=== PATIENT | male | born 1980 | race African-American/Black ===

== ENCOUNTER 2023-01-01 04:19 | Emergency (ER) | payer MEDICAID, SELFPAY ==
[2023-01-01 04:25] VITALS: BP 165/75; PULSE 68; RESP 17; TEMP 37.1; O2SAT 98; BMI 34.3
[2023-01-01 04:36] VITALS: PULSE 77
--- NOTE | 2023-01-01 05:07 | ED_ITS ---
HPI - Psych General Chief Complaint: ETOH/Substance Use Stated Complaint: seeking detox and knee pain Time Seen by Provider: 01/01/23 04:51 Source: patient Mode of arrival: ambulatory Limitations: no limitations History of Present Illness HPI Narrative: Patient with history of substance abuse use cocaine and heroin just released from the group home where he been using that there also IVDA use. No fever no chills patient also noticed skin rash on the neck and the right knee with slight redness and pain for last 3 days. No fever no chills no shortness of breath Related Data Previous Rx's Medication Instructions Recorded cephalexin 500 mg capsule 500 mg PO QID 10 days #40 caps 01/01/23 doxycycline hyclate 100 mg tablet 100 mg PO BID #20 tabs 01/01/23 Allergies Allergy/AdvReac Type Severity Reaction Status Date / Time No Known Allergies Allergy Unverified 05/24/20 19:16 [No Known Allergies*] Review of Systems Review of Systems: Yes all other systems are reviewed and are negative [facility] Social History Social History Alcohol intake: current Alcohol intake frequency: 3 or more drinks per day Alcohol type: hard liquor Smoked in Last 30 Days: Yes Use of substances other than those prescribed or required for medical reasons: Yes Substance Use Type: Crack/Cocaine, Heroin and Marijuana Last Used Substance: Hours (ago) Any prior treatment program specific to substance use: Yes Advance Directives: No Advance Directives Information Provided: Yes Physical Exam Vital Signs: Vital Signs: Last Vital Signs Temp 9706 F H 01/01/23 06:20 Pulse 90 01/01/23 06:20 Resp 21 H 01/01/23 06:20 BP 155/72 H 01/01/23 06:20 Pulse Ox 96 01/01/23 06:20 O2 Del Method Room Air 01/01/23 04:25 BMI result Body Mass Index 34.3 Appearance: Alert. Oriented X3. No acute distress. Eyes: PERRLA, ENT: Pharynx normal. Oral Mucosa moist Neck: Normal inspection. Neck supple. CVS: Normal heart rate and rhythm. Pulses normal. Respiratory: No respiratory distress. Equal air entry bilateral, no wheezing/rales/rhonchi Abdomen: Soft and nontender. Bowel sounds are present, no mass palpable, no CVA tenderness Skin: Skin warm and dry. Normal skin color. Normal skin turgor. IVDA track reynoso++ Extremities: No lower extremity edema. No calf tenderness right knee with cellulitis and lesions suggestive of MRSA good range of right knee movement no effusion Neuro: Oriented X 3. No motor deficit. No sensory deficit.No cerebellar signs , cranial nerves II-XII intact Medications Administered Discontinued Medications Generic Name Dose Route Start Last Admin Trade Name Freq PRN Reason Stop Dose Admin Cephalexin HCl 500 mg 01/01/23 05:12 01/01/23 05:23 Cephalexin 500 Mg Capsule PO 01/01/23 05:13 500 mg ONCE ONE Administration Doxycycline Monohydrate 100 mg 01/01/23 05:04 01/01/23 05:23 Doxycycline Monohydrate 100 Mg Capsule PO 01/01/23 05:05 100 mg ONCE ONE Administration Medical Decision Making Medical Decision Making [facility] Narrative: Patient with polysubstance abuse looking for detox placement will get care team involved also patient has clinically MRSA infection of the right knee will prescribe him doxycycline and Keflex Lab Data [facility] Lab Attestation statement: I reviewed the patient's lab results. 01/01/23 05:12 01/01/23 05:12 Labs: Lab Results 01/01/23 01/01/23 01/01/23 Range/Units 05:12 05:12 05:12 WBC 16.0 H (4.8-10.8) X10*3/uL RBC 4.77 (4.60-5.80) X10*6/uL Hgb 12.8 L (14.0-18.0) g/dl Hct 38.9 L (42.0-52.0) % MCV 81.6 (80.0-98.0) fL MCH 26.8 L (27.0-33.0) pg MCHC 32.9 (31.0-36.0) g/dl RDW 14.6 (11.0-16.0) % Plt Count 227 (160-400) X10*3/uL MPV 11.7 (9.4-12.4) fL Immature Gran % (Auto) 0.5 H (0.0-0.4) % Neut % (Auto) 83.8 H (45-73) % Lymph % (Auto) 6.3 L (20-40) % [place] % (Auto) 9.3 (2-11) % Eos % (Auto) 0.0 (0-4) % Baso % (Auto) 0.1 (0-2) % Lymph # (Auto) 1.0 L (1.2-4.9) X10*3/uL [place] # (Auto) 1.5 H (0.1-1.2) X10*3/uL Eos # (Auto) 0.0 (0.0-0.4) X10*3/uL Baso # (Auto) 0.0 (0.0-0.2) X10*3/uL Abs Immat Gran (auto) 0.08 H (0.00-0.03) X10*3/uL Absolute Neuts (auto) 13.4 H (2.0-8.3) x10*3/uL Absolute Nucleated RBC 0.000 (0.0-0.012) X10*3/uL Nucleated RBC % (auto) 0.0 (0.0-0.2) /100WBC Sodium 133 L (135-145) mmol/L Potassium 4.1 (3.3-5.1) mmol/L Chloride 92 L (96-108) mmol/L Carbon Dioxide 24 (22-29) mmol/L Anion Gap 21 H (12-20) BUN 23 H (9-16) mg/dL Creatinine 0.91 (0.5-1.4) mg/dL Estim Creat Clear Calc 107.4 Estimated GFR > 60 Fasting Glucose 104 H (60-99) mg/dL Calcium 9.3 (8.4-10.2) mg/dL Total Bilirubin 1.7 H (0.0-1.0) mg/dL AST 156 H (5-37) U/L ALT 90 H (0-40) U/L Alkaline Phosphatase 84 (39-117) U/L Total Protein 7.2 (6.5-8.0) g/dL Albumin 4.5 (3.5-5.0) g/dL Ethyl Alcohol < 10 mg/dL Discharge Plan Discharge Clinical Impression: Polysubstance abuse Patient Disposition: Still a Patient Prescriptions: New cephalexin 500 mg capsule 500 mg PO QID 10 Days Qty: 40 0RF doxycycline hyclate 100 mg tablet 100 mg PO BID Qty: 20 0RF
[2023-01-01 05:16] LABS: MANUAL DIFF FLAG NO
[2023-01-01 05:17] LABS: Basophils Percent Auto 0.1 % (0-2); Hematocrit 38.9 % (42.0-52.0); Hemoglobin 12.8 g/dl (14.0-18.0); Imm Gran Abs Auto 0.08 X10*3/uL (0.00-0.03); Imm Gran Pct Auto 0.5 % (0.0-0.4); Lymphocytes Percent Auto 6.3 % (20-40); Mean Corpuscular HGB Conc 32.9 g/dl (31.0-36.0); Mean Corpuscular Hemoglobin 26.8 pg (27.0-33.0); Mean Corpuscular Volume 81.6 fL (80.0-98.0); Mean Platelet Volume 11.7 fL (9.4-12.4); Monocytes Absolute Auto 1.5 X10*3/uL (0.1-1.2); Monocytes Percent Auto 9.3 % (2-11); Neutrophils Absolute Auto 13.4 x10*3/uL (2.0-8.3); Neutrophils Percent Auto 83.8 % (45-73); Platelet Count 227 X10*3/uL (160-400); Red Blood Count 4.77 X10*6/uL (4.60-5.80); Red Cell Distribution Width 14.6 % (11.0-16.0)
[2023-01-01] MEDS: Doxycycline Monohydrate 100 MG CAPSULE PO (05:23)
[2023-01-01] MEDS: cephALEXin 500 MG CAPSULE PO ×2 (05:23→13:22)
--- NOTE | 2023-01-01 05:25 | PC.NURSE ---
medicated per nov. notified JESSA porter
[2023-01-01 05:30] LABS: Ethanol < 10 mg/dL
[2023-01-01 05:33] LABS: Alanine Aminotransferase 90 U/L (0-40); Albumin Level 4.5 g/dL (3.5-5.0); Alkaline Phosphatase 84 U/L (39-117); Anion Gap 21 (12-20); Aspartate Amino Transferase 156 U/L (5-37); Bilirubin Total 1.7 mg/dL (0.0-1.0); Blood Urea Nitrogen 23 mg/dL (9-16); Calcium 9.3 mg/dL (8.4-10.2); Carbon Dioxide 24 mmol/L (22-29); Chloride 92 mmol/L (96-108); Creatinine Clr Calc Pharmacy 107.4; Estimated Glomerular Filt Rate > 60; Glucose Fasting 104 mg/dL (60-99); Potassium 4.1 mmol/L (3.3-5.1); Sodium 133 mmol/L (135-145); Total Protein 7.2 g/dL (6.5-8.0)
[2023-01-01 06:20] VITALS: BP 155/72; PULSE 90; RESP 21; TEMP 5374.4; TEMP 9706; O2SAT 96
--- NOTE | 2023-01-01 07:45 | PC.NURSE ---
pt is currently asleep, respirations even and unlabored. plan for the pt to seek detox
--- NOTE | 2023-01-01 09:46 | PC.NURSE ---
recover student success coach at bedside talking to pt, plan to start the detox bedsearch
--- NOTE | 2023-01-01 09:56 | MHC.RECOVRN ---
This newswriter met w/ patient, patient was sleeping, awake to verbal command. Patient reports was stable on Suboxone 16mg daily, while in prison for 3 months. Patient states left prison 12/11/22, has been using daily for past 3 weeks. Patient reports polysubstance use, heroin, 3-5 bundles IV daily, DEIDRE IV daily, ETOH several times weekly. Patient reports has hx of treatment ATS, CSS, TSS. Patient reports no hx of overdose. Patient requesting detox at this time. Detox bedsearch process started.
[2023-01-01 10:10] VITALS: BP 146/73; PULSE 82; RESP 16; O2SAT 96
[2023-01-01 13:23] VITALS: BP 144/88; PULSE 85; RESP 16; TEMP 36.7; O2SAT 96
[2023-01-01] MEDS: Acetaminophen 325 MG TABLET 975 MG PO (14:17)
--- NOTE | 2023-01-01 15:08 | MHC.RECOVSUP ---
Pt accepted to [facility] and arrived there via Lyft.
== END 2023-01-01 14:26 | disposition home or self-care (01) ==
PROVIDERS: Internal Medicine; Emergency Provider Emergency Medicine
DX: F19.10 Other psychoactive substance abuse, uncomplicated (principal)
CPT/HCPCS: 36415; 80053; 82077; 85025; 99283; 99285

== ENCOUNTER 2023-12-15 19:21 | Inpatient (IN) | payer OTHER, SELFPAY ==
[2023-12-15 19:45] VITALS: BP 126/67; PULSE 82; TEMP 36.8
[2023-12-15] MEDS: Ondansetron ODT 4 MG TAB.RAPDIS TRANSLINGU (20:57)
[2023-12-15] MEDS: cloNIDine HCL 0.1 MG TABLET PO (20:57)
[2023-12-15] MEDS: QUEtiapine Fumarate 200 MG TABLET PO (23:41)
[2023-12-15] MEDS: Gabapentin 400 MG CAPSULE PO (23:42)
[2023-12-15] MEDS: traZODone HCL 50 MG TABLET PO (23:44)
[2023-12-15] MEDS: hydrOXYzine HCL 25 MG TABLET PO (23:44)
[2023-12-15] MEDS: Melatonin 3 MG TABLET PO (23:44)
--- NOTE | 2023-12-16 03:28 | PC.ADMIT ---
A -Malagasy, Nauruan-speaking, single male, aged 43 years was admitted to [facility] at 1935 from [facility] ED as a CV following referral from [facility] ED. Pt self-presented at [facility] on 12/13/23 c/o SI related to withdrawal symptoms from methadone. Pt reported nausea, but no other W/D symptoms. Pt had received last dose of 215mg methadone on 12/11 with a home dose for 12/12. Pt was to start with [facility] on 12/14 per crisis assessment. On M5, pt was isolative and withdrawn to self. Pt participated in admission. Pt was oriented X3 and calm and cooperative. At [facility] ED on 12/13/23 pt c/o suicidality related to withdrawal from methadone. Pt had been getting methadone in at [facility] in [place], but changed providers to [facility] in [place]. Pt was left with a gap between end date and start date from providers. Pt has a history of suicide attempt in 2019. Pt reported anxiety and depression at 06/16. Pt reported vague SI, stating that he can seek out staff if needed. Pt denies SI/HI, AVH, and pain. Pt reports poor sleep with insomnia and frequent awakening. Pt expressed he does not want to be rushed through his stay here. Pt felt was discharged to soon from last [facility]. Pt is open to med management and referral to providers; pt reports has no PCP, therapist, or current psychiatric medication provider. Pt says want to go to [facility] after discharge. Pt is homeless since October, saying was kicked out of program b/c of marijuana use. Tox screen was positive for methadone and marijuana, though crisis report says pt reported cocaine use prior to admission. Pt told this property underwriter last use was in October. Pt was very focused on methadone and prescription meds. Medical issues include: asthma, IVDA, GERD, and hypotension. Psychiatric history includes: anxiety, depression, insomnia, PTSD, and opiate use d/o maintained on methadone. Rivin-mx-Fgavg done, admission orders obtained and initial treatment plan done. Pt still needs to do safety tool. Pt will need to sign treatment plan and safety tool. Meds verified with [facility]. \Methadone needs to be verified with [facility] [place] in the morning.
[2023-12-16 06:00] VITALS: BP 132/83; PULSE 70; RESP 18; TEMP 36.4; O2SAT 99
[2023-12-16 06:50] VITALS: BMI 35.7
--- NOTE | 2023-12-16 08:00 | ECG_ITS ---
Test Reason : check qtc Blood Pressure : / mmHG Vent. Rate : 083 BPM Atrial Rate : 083 BPM P-R Int : 144 ms QRS Dur : 088 ms QT Int : 458 ms P-R-T Axes : 062 024 035 degrees QTc Int : 538 ms Normal sinus rhythm Nonspecific ST abnormality Prolonged QT Abnormal ECG No previous ECGs available Referred By: Roxann Dumont Electronically Signed By:MARIO LI MD
--- NOTE | 2023-12-16 08:08 | HE.PHANOTE ---
METHADONE CONFIRMATION FORM PATIENT TAKES 215 MG FROM [facility]. LAST DOSE 12/12 215MG
[2023-12-16] MEDS: Omeprazole 20 MG CAPSULE.DR PO ×2 (08:13→10:29)
[2023-12-16] MEDS: Gabapentin 400 MG CAPSULE PO (08:13)
[2023-12-16] MEDS: methADONE HCl 20 MG/2 ML ORAL.CONC 215 MG PO (08:14)
--- NOTE | 2023-12-16 10:08 | HO.PM.IMCN ---
History of Present Illness Data of Consult Service Date: 12/16/23 Requesting physician: Eneida Allison Primary Care Provider: Unknown Physician HPI Reason for consult: Medical H and P 43-year-old male with history of anxiety, depression, remote history of mild intermittent asthma, opiate use disorder on methadone following with and on [address], history of hiatal hernia s/p gastroplexy admitted to Psychiatry with consult placed to hospitalist service for medical H&P from [facility] ED. while in the ED, he had a mild leukocytosis of 12 but no evidence of infection. There was a mild normocytic anemia. Renal function baseline, electrolyte levels normal. EKG on the unit this morning showed sinus rhythm, no AV lorene blocks, nonspecific ST abnormality but no acute ischemic changes. Prolonged QTC of 538. He reports history of hiatal hernia s/p gastropexy currently on omeprazole 20 mg. Reporting worsening acid reflux. No dysphagia. No abdominal pain, nausea, vomiting. Otherwise no complaints. Review of Systems Review of Systems: General: No fevers, malaise, unintentional weight loss HEENT: No blurred vision, diplopia. No sore throat, nasal congestion, rhinorrhea, sinus pain, ear pain Cardiovascular: No chest pain, palpitations, or leg edema Respiratory: No shortness of breath, wheezing, cough GI: +reflux. No abdominal pain, nausea, vomiting, diarrhea, constipation, melena, hematochezia : No dysuria, hematuria, increased urinary frequency, decreased urinary output MSK: No myalgia, back pain Neuro: No headaches, weakness, paresthesias Skin: No rashes or lesions [facility] Medical History Opioid use disorder Asthma Depression Anxiety Social History Household Members: Unknown / Unable to assess Housing: Homeless Do you presently have visiting nurse or other home services: No Alcohol intake: current Alcohol intake frequency: 3 or more drinks per day Alcohol type: hard liquor Patient Tobacco Use Status: Current everyday Tobacco user Tobacco use type: Cigarette Cigarette Packs Per Day: 1 Cigarettes Per Day: 20.0 Years Smoked: unknown Smoked in Last 30 Days: Yes e-Cigarette/Vaping Use: Never Used Patient Interested in Nicotine Replacement: No Patient Given Instructions on How to Stop Smoking: Yes Date Education Initiated: 12/15/23 Use of substances other than those prescribed or required for medical reasons: Yes Substance Use Type: Crack/Cocaine, Former Substance User and Marijuana Substance Use Frequency: Recent Binge Last Used Substance: Unknown Currently Displaying Signs/Symptoms of Drug Intoxication Withdrawal: No Any prior treatment program specific to substance use: No Spiritual Healthcare Practices: None Buddhist Healthcare Practices: None Cultural Healthcare Practices: None Advance Directives: No Advance Directives Information Provided: No Do you have thoughts of harming others: None Do you have a plan to hurt others: No Plan Recently lost weight without trying: Unsure How much weight loss: Unsure Eating poorly because of decreased appetite: No Nutrition screen score: 4 Nutrition Risks: No Nutritional Risk Poor oral hygiene: No Meds Allergies Allergy/AdvReac Type Severity Reaction Status Date / Time No Known Allergies Allergy Unverified 05/24/20 19:16 [No Known Allergies*] Active Medications: Current Medications Acetaminophen (Acetaminophen 325 Mg Tablet) 650 mg PO Q6H PRN PRN Reason: Headache/Pain Mild Scale (1-3) Al Hydroxide/Mg Hydroxide (Magnesium Hydrox/Alum Hydrox 30 Ml Oral.Susp) 30 ml PO Q6H PRN PRN Reason: Heartburn/Nausea Clonidine HCl (Clonidine Hcl 0.1 Mg Tablet) 0.1 mg PO TID PRN; Protocol PRN Reason: anxiety/restlessness Last Admin: 12/15/23 20:57 Dose: 0.1 mg Gabapentin (Gabapentin 400 Mg Capsule) 400 mg PO TID [facility] Last Admin: 12/16/23 08:13 Dose: 400 mg Hydroxyzine HCl (Hydroxyzine Hcl 25 Mg Tablet) 25 mg PO Q6H PRN PRN Reason: Anxiety Last Admin: 12/15/23 23:44 Dose: 25 mg Magnesium Hydroxide (Milk Of Magnesia 30 Ml Oral.Susp) 30 ml PO DAILY PRN PRN Reason: Constipation Melatonin (Melatonin 3 Mg Tablet) 3 mg PO BEDTIME PRN PRN Reason: Insomnia Last Admin: 12/15/23 23:44 Dose: 3 mg Methadone HCl (Methadone Hcl 20 Mg/2 Ml Oral.Conc) 215 mg PO DAILY [facility] Last Admin: 12/16/23 08:14 Dose: 215 mg Omeprazole (Omeprazole 20 Mg Capsule.Dr) 20 mg PO DAILY [facility] Last Admin: 12/16/23 08:13 Dose: 20 mg Ondansetron HCl (Ondansetron Odt 4 Mg Tab.Rapdis) 4 mg TRANSLINGU Q8H PRN PRN Reason: Nausea and Vomiting Last Admin: 12/15/23 20:57 Dose: 4 mg Quetiapine Fumarate (Quetiapine Fumarate 100 Mg Tablet) 100 mg PO TID PRN PRN Reason: Anxiety Quetiapine Fumarate (Quetiapine Fumarate 200 Mg Tablet) 200 mg PO BEDTIME SHANAE Last Admin: 12/15/23 23:41 Dose: 200 mg Trazodone HCl (Trazodone Hcl 50 Mg Tablet) 50 mg PO BEDTIME MRX1 PRN PRN Reason: Insomnia Last Admin: 12/15/23 23:44 Dose: 50 mg Home Medications ?Medication ?Instructions ?Recorded ?Confirmed ?Last Taken ?Type clonidine HCl 0.1 mg PO TID PRN Anxiety 12/15/23 12/15/23 Unknown History gabapentin 1,200 mg PO TID 12/15/23 12/16/23 Unknown History melatonin 3 mg PO BEDTIME PRN Insomnia 12/15/23 12/15/23 Unknown History omeprazole 20 mg PO DAILY 12/15/23 12/15/23 Unknown History quetiapine 100 mg PO TID PRN Anxiety 12/15/23 12/15/23 Unknown History quetiapine 200 mg PO BEDTIME 12/15/23 12/15/23 Unknown History Physical Exam Vital Signs and Narrative: Vital Signs: Last Vital Signs Temp 97.6 F 12/16/23 06:00 Pulse 70 12/16/23 06:00 Resp 18 12/16/23 06:00 BP 132/83 12/16/23 06:00 Pulse Ox 99 12/16/23 06:00 O2 Del Method Room Air 12/16/23 06:00 BMI result Body Mass Index 35.7 Constitutional - Awake and Alert, No apparent distress Eyes - PERRLA, EOMI Cardiovascular - S1S2, RRR, No edema Respiratory - Normal lung expansion, Normal respiratory effort, No respiratory distress, CTA bilaterally Gastrointestinal - NT / ND; +BS; No rebound or guarding Extremities - no calf tenderness bilaterally, no swelling Musculoskeletal - Normal inspection, normal ROM Skin - Warm/Dry Neurological - Alert & oriented x3, CN II-XII in tact, 5/5 strength BUE and BLE Psychological - Appropriate affect Assessment and Plan (1) Routine medical exam: Status: Acute Plan 43-year-old male with history of anxiety, depression, remote history of mild intermittent asthma, opiate use disorder on methadone following with and on [facility], history of hiatal hernia s/p gastroplexy admitted to Psychiatry with consult placed to hospitalist service for medical H&P from [facility] ED. #Mood disorder -plan per psychiatry #OUD -last use 2 months ago -continue methadone, follows with [facility] #Asthma -remote histoyr -albuterol prn Thank you for allowing me to participate in this consult. Signing off at this time. Please do not hesitate to call for further questions.
--- NOTE | 2023-12-16 10:24 | HO.PSYADMNOT ---
HPI Date of Service: 12/16/23 Chief Complaint: Major Depressive disorder, Polysubstance Use, Opia Sources of Information: patient interviewed, chart reviewed and crisis/core team assessment reviewed HPI Subjective Notes: Moody Warning and Conditional Voluntary Healthcare Proxy: No Guardianship: No Medical Problems Affecting Mental Status: No Narrative: 43 yo male, history of PTSD, depression, anxiety, opiate use disorder-methadone maintenance, alcohol, nicotine, crack, cocaine, cannabis use disorder, asthma, hiatal hernia s/p gastroplexy presents in transfer from [facility] for SI, due to inability to receive his methadone and appropriate psychiatric medications. Pt reports being in recovery since Aug 2023 and feeling well. Reports he has been unable to receive consistent mental health treatment and became suicidal when he was unable to obtain his methadone dosing. Reports he was living in [place] and the provider wait list has been very long. Pt would like to re-stabilize and begin a recovery program again. Review of pt's med list. Discussed klonopin and risks-pt is aware and is willing to trial 50% of his previous dosage prescribed in July. Pt reports treatment works for him and he would like to stabilize, find stable provider group and program and attempt to accomplish goals in his life including simplicity, work-hopes to return to [employer], and just to be a regular person. Hopes for acceptance to [facility]. Past Psychiatric History: IP: 5+ OP: No alliances at this time 5 years in [facility] Several incarcerations-[place] and [place], 6 years, 5 years, 2.5 years Medical Evaluation Reviewed: Yes [facility]LY [facility], [facility] Medical History (Updated 12/16/23 @ 23:11 by Eneida Allison, BUILDING CONSTRUCTION CONTRACTOR) Alcohol use disorder Polysubstance use disorder Opioid use disorder, moderate, in early remission, on maintenance therapy, dependence Recurrent major depression PTSD (post-traumatic stress disorder) Opioid use disorder Asthma Depression Anxiety Family History: Parents with mental health issues Social History: Born locally, raised by his grandmother. Parents were not around, father was never around, mother was erratic. One brother and one sister from mom, 5 siblings from dad, pt is oldest and estranged from all. Obtained GED, then went to the streets, incarceration Substance History: Toxicology positive for methadone, fentanyl, cocaine, cannabis. Hx alcohol 3-5 drinks qd, nicotine 1 PPD, crack, cocaine, cannabis Trauma History: Severe, Has seen several people injured and killed while incarcerated Diagnostics Vital Signs (24Hr): Vital Signs - 24 hr 12/15/23 19:45 12/16/23 06:00 Temperature 98.2 F 97.6 F Pulse Rate 82 70 Respiratory Rate 18 Blood Pressure 126/67 132/83 Pulse Oximetry 99 Oxygen Delivery Method Room Air BMI result Body Mass Index 35.7 EKG EKG: reviewed EKG Comment: [address] changes Abnormal Meds/Allergies Meds Home Medications ?Medication ?Instructions ?Recorded ?Confirmed ?Type clonidine HCl 0.1 mg PO TID PRN Anxiety 12/15/23 12/15/23 History gabapentin 1,200 mg PO TID 12/15/23 12/16/23 History melatonin 3 mg PO BEDTIME PRN Insomnia 12/15/23 12/15/23 History omeprazole 20 mg PO DAILY 12/15/23 12/15/23 History quetiapine 100 mg PO TID PRN Anxiety 12/15/23 12/15/23 History quetiapine 200 mg PO BEDTIME 12/15/23 12/15/23 History Allergies Allergies Allergy/AdvReac Type Severity Reaction Status Date / Time No Known Allergies Allergy Unverified 05/24/20 19:16 [No Known Allergies*] Mental Status Exam Mental Status Exam Patient Appearance: Fatigued and Appropriate Patient Orientation: Person, Place, Time and Situation Level of Consciousness: Alert Patient Behavior: Talkative and Good Eye Contact Mood Description: Depressed and Anxious Affect Description: Flat Patient Cognition Impaired: No Ability to Follow Directions: Good Speech Pattern: Spontaneous Speech Memory Description: Intact Hallucinations: None Delusions: Not Present Perceptual Disturbances: Depersonalization and Derealization Thought Process: Rumination and Goal Oriented Thought Content: positive for [place], positive for Circumstantial, positive for Goal Oriented and positive for Suicidal Ideation Depressive Symptoms: Increased Anxiety, Isolating-Friends/Family, Thoughts of /Suicide and Low Self Esteem Judgement: Good Assessment & Plan Assessment & Plan (1) PTSD (post-traumatic stress disorder): Status: Acute Code(s): F43.10 - Post-traumatic stress disorder, unspecified (2) Recurrent major depression: Status: Acute Code(s): F33.9 - Major depressive disorder, recurrent, unspecified (3) Opioid use disorder, moderate, in early remission, on maintenance therapy, dependence: Status: Acute Code(s): F11.21 - Opioid dependence, in remission (4) Polysubstance use disorder: Status: Acute Code(s): F19.90 - Other psychoactive substance use, unspecified, uncomplicated (5) Alcohol use disorder: Status: Acute Code(s): F10.90 - Alcohol use, unspecified, uncomplicated Plan 43 yo male, history of PTSD, depression, opiate, polysubstance and alcohol use disorder presents with SI due to interruptions in addiction and mental health treatment. Plan: Re-establish regime Klonopin 1 mg daily Collateral contacts Application for ongoing residential treatment for addiction. Re-check EKG as QTc is elevated. Patient educated on: medication risk/benefits, substance abuse and therapeutic strategies Informed Consent: understands Reason for continued inpatient stay Substantial Risk for: harm to self and rapid decompensation Statement Statement: I have reviewed the history and physical and performed a pertinent examination on my patient. No changes have occurred unless specified. If the History and Physical was not performed prior to admission, the Hospitalist's service will be consulted for completing the admission physical. Time Spent With Patient Time: Total time managing care of this patient today ____ minutes.
[2023-12-16] MEDS: QUEtiapine Fumarate 100 MG TABLET PO ×2 (10:29→19:46)
[2023-12-16] MEDS: clonazePAM 1 MG TABLET PO (11:41)
[2023-12-16] MEDS: Gabapentin 400 MG CAPSULE 1200 MG PO ×2 (13:53→19:44)
[2023-12-16 17:15] VITALS: BP 131/86; PULSE 88; RESP 16; TEMP 36.8; O2SAT 96
[2023-12-16] MEDS: Melatonin 3 MG TABLET PO (19:45)
[2023-12-16] MEDS: cloNIDine HCL 0.1 MG TABLET PO (19:45)
[2023-12-16] MEDS: traZODone HCL 50 MG TABLET PO (19:45)
[2023-12-16] MEDS: hydrOXYzine HCL 25 MG TABLET PO (19:45)
[2023-12-16] MEDS: QUEtiapine Fumarate 200 MG TABLET PO (19:48)
[2023-12-17] MEDS: Omeprazole 40 MG CAPSULE.DR PO (06:52)
[2023-12-17 07:00] VITALS: BMI 36.1
[2023-12-17 08:15] VITALS: BP 106/59; PULSE 67; RESP 18; TEMP 36.7; O2SAT 98
[2023-12-17] MEDS: clonazePAM 1 MG TABLET PO (08:23)
[2023-12-17] MEDS: methADONE HCl 20 MG/2 ML ORAL.CONC 215 MG PO (08:23)
[2023-12-17] MEDS: Gabapentin 400 MG CAPSULE 1200 MG PO ×3 (08:23→19:44)
[2023-12-17 09:19] LABS: Vitamin B12 550 pg/mL (200-900)
[2023-12-17 09:22] LABS: Estimated Average Glucose 126 mg/dL
[2023-12-17 10:10] LABS: Cholesterol 159 mg/dL (<200); HDL Cholesterol 40 mg/dL (>40); LDL Cholesterol Calculated 95 mg/dL (<100); Magnesium 2.2 mg/dL (1.6-2.6); Triglycerides 120 mg/dL (<150)
[2023-12-17 10:27] LABS: Free T4 (Free Thyroxine) 1.12 ng/dL (0.71-1.85); Thyroid Stimulating Hormone 1.51 uIU/mL (0.32-4.0)
[2023-12-17] MEDS: QUEtiapine Fumarate 100 MG TABLET PO (12:14)
[2023-12-17] MEDS: cloNIDine HCL 0.1 MG TABLET PO ×2 (12:14→19:44)
--- NOTE | 2023-12-17 17:12 | P.PNPSI_ITS ---
Subjective Subjective Date of Service: 12/17/23 Reason For Visit: Major Depressive disorder, Polysubstance Use, Opia Interim History: met with patient; discussed with team reports overall mood is better, depression better and no SI. pt irritable, multiple requests for things, timing of meds, and irritated when request not granted. Inappropriate sexualized verbal interaction with female 18 yo female peer rude comment made to male peer -screenplay writer discussed meds and explained dosing but was able to make comprimise with patient -discussed his interaction w/ female peer which he denied (was overheard by 2 staff) but says will refrain from any such interactions -pt wants ambien for sleep; says trazodone, seroquel, mirtazapine no longer works. Inspecting And Testing Lead Hand decided not start at this time. Mental Status Exam Mental Status Exam Narrative: Pt is alert and oriented; behavior is irritable; patient is not in distress; dressed in hospital attire, heavily tattooed face; adequate hygiene; mood is described as irritable and affect congruent; eye contact appropriate; Speech is normal rate, volume and prosody and not pressured; no psychomotor agitation/retardation present; thought process is organized and goal directed; Thought content is on tx; otherwise pertinent to relevant topics and without any delusional content, paranoid ideations or grandiosity; denies any SI/HI. There i s no evidence of perceptual disturbance. Patients insight and judgment appear intact. Diagnostics Vital Signs (24Hr): Vital Signs - 24 hr 12/16/23 17:15 12/17/23 08:15 Temperature 98.2 F 98.0 F Pulse Rate 88 67 Respiratory Rate 16 18 Blood Pressure 131/86 106/59 L Pulse Oximetry 96 98 Oxygen Delivery Method Room Air Room Air BMI result Body Mass Index 36.1 Labs Labs: Laboratory Results - last 48 hr 12/17/23 08:16 Estimat Average Glucose 126 Hemoglobin A1c % 6.0 Magnesium 2.2 Triglycerides 120 Cholesterol 159 LDL Cholesterol, Calc 95 HDL Cholesterol 40 L Vitamin B12 550 Folate 11.0 TSH 1.51 Free T4 1.12 Medications Medications Current Medications Acetaminophen (Acetaminophen 325 Mg Tablet) 650 mg PO Q6H PRN PRN Reason: Headache/Pain Mild Scale (1-3) Al Hydroxide/Mg Hydroxide (Magnesium Hydrox/Alum Hydrox 30 Ml Oral.Susp) 30 ml PO Q6H PRN PRN Reason: Heartburn/Nausea Bupropion HCl (Bupropion Hcl Xl 150 Mg Tab.Er.24h) 150 mg PO DAILY [facility] Clonazepam (Clonazepam 1 Mg Tablet) 1 mg PO DAILY [facility] Last Admin: 12/17/23 08:23 Dose: 1 mg Clonidine HCl (Clonidine Hcl 0.1 Mg Tablet) 0.1 mg PO TID PRN; Protocol PRN Reason: anxiety/restlessness Last Admin: 12/17/23 12:14 Dose: 0.1 mg Gabapentin (Gabapentin 400 Mg Capsule) 1,200 mg PO TID [facility] Last Admin: 12/17/23 14:46 Dose: 1,200 mg Hydroxyzine HCl (Hydroxyzine Hcl 25 Mg Tablet) 25 mg PO Q6H PRN PRN Reason: Anxiety Last Admin: 12/16/23 19:45 Dose: 25 mg Magnesium Hydroxide (Milk Of Magnesia 30 Ml Oral.Susp) 30 ml PO DAILY PRN PRN Reason: Constipation Melatonin (Melatonin 3 Mg Tablet) 3 mg PO BEDTIME PRN PRN Reason: Insomnia Last Admin: 12/16/23 19:45 Dose: 3 mg Methadone HCl (Methadone Hcl 20 Mg/2 Ml Oral.Conc) 215 mg PO DAILY [facility] Last Admin: 12/17/23 08:23 Dose: 215 mg Omeprazole (Omeprazole 40 Mg Capsule.Dr) 40 mg PO DAILY@0630 [facility] Last Admin: 12/17/23 06:52 Dose: 40 mg Ondansetron HCl (Ondansetron Odt 4 Mg Tab.Rapdis) 4 mg TRANSLINGU Q8H PRN PRN Reason: Nausea and Vomiting Last Admin: 12/15/23 20:57 Dose: 4 mg Quetiapine Fumarate (Quetiapine Fumarate 100 Mg Tablet) 100 mg PO TID PRN PRN Reason: Anxiety Last Admin: 12/17/23 12:14 Dose: 100 mg Quetiapine Fumarate (Quetiapine Fumarate 200 Mg Tablet) 200 mg PO BEDTIME [facility] Last Admin: 12/16/23 19:48 Dose: 200 mg Trazodone HCl (Trazodone Hcl 50 Mg Tablet) 50 mg PO BEDTIME MRX1 PRN PRN Reason: Insomnia Last Admin: 12/16/23 19:45 Dose: 50 mg Allergies Allergies Allergy/AdvReac Type Severity Reaction Status Date / Time No Known Allergies Allergy Unverified 05/24/20 19:16 [No Known Allergies*] Assessment & Plan Assessment & Plan (1) PTSD (post-traumatic stress disorder): Status: Acute Code(s): F43.10 - Post-traumatic stress disorder, unspecified (2) Recurrent major depression: Status: Acute Code(s): F33.9 - Major depressive disorder, recurrent, unspecified (3) Opioid use disorder, moderate, in early remission, on maintenance therapy, dependence: Status: Acute Code(s): F11.21 - Opioid dependence, in remission (4) Polysubstance use disorder: Status: Acute Code(s): F19.90 - Other psychoactive substance use, unspecified, uncomplicated (5) Alcohol use disorder: Status: Acute Code(s): F10.90 - Alcohol use, unspecified, uncomplicated Plan 43 yo male, history of PTSD, depression, opiate, polysubstance and alcohol use disorder presents with SI due to interruptions in addiction and mental health treatment. Hospital course: 12/16 mood better, depression less and no SI pt irritable, multiple requests for things, timing of meds, and irritated when request not granted. Inappropriate sexualized verbal interaction with female 18 yo female peer rude comment made to male peer -screenplay writer discussed meds and explained dosing but was able to make comprimise with patient -discussed his interaction w/ female peer which he denied (was overheard by 2 staff) but says will refrain from any such interactions -pt wants ambien for sleep; says trazodone, seroquel, mirtazapine no longer works. Inspecting And Testing Lead Hand decided not start at this time. However, discussed Wellbutrin which he says helps and screenplay writer agreed to restart Plan: cv q5's for now START wEllbutrin XL 150mg daily (pt used to be on 450mg) Re-establish regime Klonopin 1 mg daily Collateral contacts Application for ongoing residential treatment for addiction. Re-check EKG as QTc is elevated. Patient educated on: diagnosis, medication risk/benefits and substance abuse Informed Consent: understands and further education needed Reason for continued inpatient stay Substantial Risk for: stable for discharge Time Spent With Patient Time: Total time managing care of this patient today ____ minutes.
[2023-12-17 17:55] VITALS: BP 144/88; PULSE 93; RESP 18; TEMP 37.1; O2SAT 97
[2023-12-17] MEDS: traZODone HCL 50 MG TABLET PO (19:44)
[2023-12-17] MEDS: hydrOXYzine HCL 25 MG TABLET PO (19:45)
[2023-12-17] MEDS: QUEtiapine Fumarate 200 MG TABLET PO (19:45)
[2023-12-17 19:47] VITALS: BP 124/92; PULSE 101
[2023-12-18] MEDS: methADONE HCl 20 MG/2 ML ORAL.CONC 215 MG PO (06:03)
[2023-12-18] MEDS: Omeprazole 40 MG CAPSULE.DR PO (06:03)
[2023-12-18] MEDS: Gabapentin 400 MG CAPSULE 1200 MG PO ×3 (08:01→21:23)
[2023-12-18] MEDS: buPROPion HCl XL 150 MG TAB.ER.24H PO (08:01)
[2023-12-18] MEDS: clonazePAM 1 MG TABLET PO (08:01)
[2023-12-18] MEDS: QUEtiapine Fumarate 100 MG TABLET PO ×3 (08:25→21:24)
[2023-12-18] MEDS: hydrOXYzine HCL 25 MG TABLET PO ×2 (08:25→21:24)
[2023-12-18] MEDS: cloNIDine HCL 0.1 MG TABLET PO ×3 (08:25→21:24)
[2023-12-18 08:40] VITALS: BP 137/81; PULSE 84; RESP 18; TEMP 36.7; O2SAT 96
[2023-12-18 15:30] VITALS: BP 131/79; PULSE 79
--- NOTE | 2023-12-18 15:40 | HO.PSYCHPN ---
Subjective Subjective Date of Service: 12/18/23 Reason For Visit: Major Depressive disorder, Polysubstance Use, Opia Interim History: met with pt; discussed with team pt in better mood today and in good behavioral and impulse control. No inappropriate behaviors accepted why all meds not given at 6:30am but grateful that methadone can remain so Pt reports poor sleep; he did not ask for ambien, but health technical writer offered since health technical writer agrees that sleep will help overall and lack of sleep can be a hinderance to progress. -pt asked for Wellbutrin to be increased to which health technical writer agreed. Mental Status Exam Mental Status Exam Narrative: Pt is alert and oriented; behavior is improved, calm, cooperative, appropriate; patient is not in distress; dressed in hospital attire, heavily tattooed face; adequate hygiene; mood is described as improved and affect congruent, calmer, brighter; eye contact appropriate; Speech is normal rate, volume and prosody and not pressured; no psychomotor agitation/retardation present; thought process is organized and goal directed; Thought content is on tx; otherwise pertinent to relevant topics and without any delusional content, paranoid ideations or grandiosity; denies any SI/HI. There is no evidence of perceptual disturbance. Patients insight and judgment appear intact. Diagnostics Vital Signs (24Hr): Vital Signs - 24 hr 12/17/23 17:55 12/17/23 19:47 12/18/23 08:40 Temperature 98.7 F 98.0 F Pulse Rate 93 101 H 84 Respiratory Rate 18 18 Blood Pressure 144/88 H 124/92 H 137/81 Pulse Oximetry 97 96 Oxygen Delivery Method Room Air Room Air 12/18/23 15:30 Temperature Pulse Rate 79 Respiratory Rate Blood Pressure 131/79 Pulse Oximetry Oxygen Delivery Method BMI result Body Mass Index 36.1 Labs Labs: Laboratory Results - last 48 hr 12/17/23 08:16 Estimat Average Glucose 126 Hemoglobin A1c % 6.0 Magnesium 2.2 Triglycerides 120 Cholesterol 159 LDL Cholesterol, Calc 95 HDL Cholesterol 40 L Vitamin B12 550 Folate 11.0 TSH 1.51 Free T4 1.12 Medications Medications Current Medications Acetaminophen (Acetaminophen 325 Mg Tablet) 650 mg PO Q6H PRN PRN Reason: Headache/Pain Mild Scale (1-3) Al Hydroxide/Mg Hydroxide (Magnesium Hydrox/Alum Hydrox 30 Ml Oral.Susp) 30 ml PO Q6H PRN PRN Reason: Heartburn/Nausea Bupropion HCl (Bupropion Hcl Xl 150 Mg Tab.Er.24h) 150 mg PO DAILY [facility] Last Admin: 12/18/23 08:01 Dose: 150 mg Clonazepam (Clonazepam 1 Mg Tablet) 1 mg PO DAILY [facility] Last Admin: 12/18/23 08:01 Dose: 1 mg Clonidine HCl (Clonidine Hcl 0.1 Mg Tablet) 0.1 mg PO TID PRN; Protocol PRN Reason: anxiety/restlessness Last Admin: 12/18/23 15:29 Dose: 0.1 mg Clonidine HCl (Clonidine Hcl 0.1 Mg Tablet) 0.1 mg PO BEDTIME [facility]; Protocol Last Admin: 12/17/23 19:44 Dose: 0.1 mg Gabapentin (Gabapentin 400 Mg Capsule) 1,200 mg PO TID [facility] Last Admin: 12/18/23 14:01 Dose: 1,200 mg Hydroxyzine HCl (Hydroxyzine Hcl 25 Mg Tablet) 25 mg PO Q6H PRN PRN Reason: Anxiety Last Admin: 12/18/23 08:25 Dose: 25 mg Magnesium Hydroxide (Milk Of Magnesia 30 Ml Oral.Susp) 30 ml PO DAILY PRN PRN Reason: Constipation Melatonin (Melatonin 3 Mg Tablet) 3 mg PO BEDTIME PRN PRN Reason: Insomnia Last Admin: 12/16/23 19:45 Dose: 3 mg Methadone HCl (Methadone Hcl 20 Mg/2 Ml Oral.Conc) 215 mg PO DAILY@0630 [facility] Last Admin: 12/18/23 06:03 Dose: 215 mg Omeprazole (Omeprazole 40 Mg Capsule.Dr) 40 mg PO DAILY@0630 [facility] Last Admin: 12/18/23 06:03 Dose: 40 mg Ondansetron HCl (Ondansetron Odt 4 Mg Tab.Rapdis) 4 mg TRANSLINGU Q8H PRN PRN Reason: Nausea and Vomiting Last Admin: 12/15/23 20:57 Dose: 4 mg Quetiapine Fumarate (Quetiapine Fumarate 100 Mg Tablet) 100 mg PO TID PRN PRN Reason: Anxiety Last Admin: 12/18/23 15:29 Dose: 100 mg Quetiapine Fumarate (Quetiapine Fumarate 200 Mg Tablet) 200 mg PO BEDTIME [facility] Last Admin: 12/17/23 19:45 Dose: 200 mg Trazodone HCl (Trazodone Hcl 50 Mg Tablet) 50 mg PO BEDTIME MRX1 PRN PRN Reason: Insomnia Last Admin: 12/17/23 19:44 Dose: 50 mg Allergies Allergies Allergy/AdvReac Type Severity Reaction Status Date / Time No Known Allergies Allergy Unverified 05/24/20 19:16 [No Known Allergies*] Assessment & Plan Assessment & Plan (1) PTSD (post-traumatic stress disorder): Status: Acute Code(s): F43.10 - Post-traumatic stress disorder, unspecified (2) Recurrent major depression: Status: Acute Code(s): F33.9 - Major depressive disorder, recurrent, unspecified (3) Opioid use disorder, moderate, in early remission, on maintenance therapy, dependence: Status: Acute Code(s): F11.21 - Opioid dependence, in remission (4) Polysubstance use disorder: Status: Acute Code(s): F19.90 - Other psychoactive substance use, unspecified, uncomplicated (5) Alcohol use disorder: Status: Acute Code(s): F10.90 - Alcohol use, unspecified, uncomplicated Plan 43 yo male, history of PTSD, depression, opiate, polysubstance and alcohol use disorder presents with SI due to interruptions in addiction and mental health treatment. Hospital course: 12/16 mood better, depression less and no SI pt irritable, multiple requests for things, timing of meds, and irritated when request not granted. Inappropriate sexualized verbal interaction with female 18 yo female peer rude comment made to male peer -health technical writer discussed meds and explained dosing but was able to make comprimise with patient -discussed his interaction w/ female peer which he denied (was overheard by 2 staff) but says will refrain from any such interactions -pt wants ambien for sleep; says trazodone, seroquel, mirtazapine no longer works. Parent Trainer decided not start at this time. However, discussed Wellbutrin which he says helps and health technical writer agreed to restart 12/17 pt in better mood today and in good behavioral and impulse control. No inappropriate behaviors accepted why all meds not given at 6:30am but grateful that methadone can remain so Pt reports poor sleep; he did not ask for ambien, but health technical writer offered since health technical writer agrees that sleep will help overall and lack of sleep can be a hinderance to progress. -discussed hx of insomnia which is considerable -pt asked for Wellbutrin to be increased to which health technical writer agreed. Plan: cv q5's for now INCREASE to wEllbutrin XL 300mg daily (pt used to be on 450mg) ambien 5mg qhs prn Klonopin 1 mg daily Collateral contacts Application for ongoing residential treatment for addiction. Re-check EKG as QTc is elevated. Patient educated on: diagnosis, medication risk/benefits and therapeutic strategies Informed Consent: understands Reason for continued inpatient stay Substantial Risk for: rapid decompensation Time Spent With Patient Time: Total time managing care of this patient today ____ minutes.
[2023-12-18 18:15] VITALS: BP 128/71; PULSE 98; RESP 16; TEMP 36.7; O2SAT 97
[2023-12-18] MEDS: QUEtiapine Fumarate 200 MG TABLET PO (21:23)
[2023-12-18] MEDS: Melatonin 3 MG TABLET PO (21:24)
[2023-12-18] MEDS: traZODone HCL 50 MG TABLET PO (21:24)
[2023-12-18] MEDS: Zolpidem Tartrate 5 MG TABLET PO (21:24)
[2023-12-19] MEDS: cloNIDine HCL 0.1 MG TABLET PO ×4 (01:40→20:41)
[2023-12-19] MEDS: traZODone HCL 50 MG TABLET PO ×2 (01:40→20:41)
[2023-12-19 01:42] VITALS: BP 113/66; PULSE 105; RESP 16
[2023-12-19] MEDS: Omeprazole 40 MG CAPSULE.DR PO (06:23)
[2023-12-19] MEDS: methADONE HCl 20 MG/2 ML ORAL.CONC 215 MG PO (06:23)
[2023-12-19] MEDS: Gabapentin 400 MG CAPSULE 1200 MG PO ×3 (06:29→20:39)
[2023-12-19] MEDS: QUEtiapine Fumarate 100 MG TABLET PO ×2 (06:30→16:15)
[2023-12-19] MEDS: buPROPion HCl XL 300 MG TAB.ER.24H PO (06:30)
[2023-12-19] MEDS: clonazePAM 1 MG TABLET PO (06:30)
[2023-12-19 08:35] VITALS: BP 127/69; PULSE 87; RESP 16; TEMP 36.7; O2SAT 94
[2023-12-19 10:18] VITALS: BP 120/80; PULSE 79
[2023-12-19] MEDS: hydrOXYzine HCL 25 MG TABLET PO ×2 (10:40→20:40)
[2023-12-19 16:15] VITALS: BP 114/66; PULSE 89; TEMP 37.1
[2023-12-19 20:35] VITALS: BP 129/64; PULSE 92; TEMP 37.3
[2023-12-19] MEDS: Melatonin 3 MG TABLET PO (20:39)
[2023-12-19] MEDS: QUEtiapine Fumarate 200 MG TABLET PO (20:40)
[2023-12-19] MEDS: Zolpidem Tartrate 5 MG TABLET PO (20:40)
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
[2023-12-20] MEDS: traZODone HCL 50 MG TABLET PO ×2 (00:28→20:32)
[2023-12-20] MEDS: QUEtiapine Fumarate 100 MG TABLET PO ×4 (00:28→20:32)
[2023-12-20] MEDS: Omeprazole 40 MG CAPSULE.DR PO (06:44)
[2023-12-20] MEDS: methADONE HCl 20 MG/2 ML ORAL.CONC 215 MG PO (06:45)
[2023-12-20] MEDS: buPROPion HCl XL 300 MG TAB.ER.24H PO (07:49)
[2023-12-20] MEDS: clonazePAM 1 MG TABLET PO (07:50)
[2023-12-20] MEDS: Gabapentin 400 MG CAPSULE 1200 MG PO ×3 (07:50→20:31)
[2023-12-20 08:15] VITALS: BP 113/59; PULSE 79; RESP 18; TEMP 36.5; O2SAT 98
[2023-12-20 13:12] VITALS: BP 121/69; PULSE 106
[2023-12-20] MEDS: cloNIDine HCL 0.1 MG TABLET PO ×4 (13:12→20:32)
[2023-12-20] MEDS: hydrOXYzine HCL 25 MG TABLET PO ×2 (13:12→20:31)
[2023-12-20 18:00] VITALS: BP 122/67; PULSE 87; RESP 16; TEMP 36.8; O2SAT 98
[2023-12-20] MEDS: Zolpidem Tartrate 5 MG TABLET PO (20:31)
[2023-12-20] MEDS: QUEtiapine Fumarate 200 MG TABLET PO (20:32)
[2023-12-20] MEDS: Melatonin 3 MG TABLET PO (20:32)
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
[2023-12-21] MEDS: cloNIDine HCL 0.1 MG TABLET PO ×3 (01:22→13:49)
[2023-12-21] MEDS: traZODone HCL 50 MG TABLET PO (01:22)
[2023-12-21 06:00] VITALS: BP 107/65; PULSE 86; RESP 16; TEMP 36.5; O2SAT 96
[2023-12-21] MEDS: Omeprazole 40 MG CAPSULE.DR PO (06:13)
[2023-12-21] MEDS: methADONE HCl 20 MG/2 ML ORAL.CONC 215 MG PO (06:13)
[2023-12-21] MEDS: Gabapentin 400 MG CAPSULE 1200 MG PO ×3 (08:26→20:31)
[2023-12-21] MEDS: clonazePAM 1 MG TABLET PO (08:26)
[2023-12-21] MEDS: buPROPion HCl XL 300 MG TAB.ER.24H PO (08:26)
[2023-12-21] MEDS: hydrOXYzine HCL 25 MG TABLET PO (08:34)
[2023-12-21] MEDS: QUEtiapine Fumarate 100 MG TABLET PO ×3 (08:34→20:31)
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
[2023-12-21 13:49] VITALS: BP 117/62; PULSE 72; O2SAT 98
[2023-12-21 18:00] VITALS: BP 121/65; PULSE 81; RESP 16; TEMP 37.1; O2SAT 97
[2023-12-21] MEDS: Melatonin 3 MG TABLET PO (20:30)
[2023-12-21] MEDS: Zolpidem Tartrate 5 MG TABLET PO (20:30)
[2023-12-21] MEDS: QUEtiapine Fumarate 200 MG TABLET PO (20:30)
[2023-12-21] MEDS: cloNIDine HCL 0.2 MG TABLET PO (20:31)
[2023-12-21] MEDS: traZODone HCL 100 MG TABLET PO (20:31)
--- NOTE | 2023-12-22 | ECG_ITS ---
Test Reason : check qtc Blood Pressure : / mmHG Vent. Rate : 083 BPM Atrial Rate : 083 BPM P-R Int : 154 ms QRS Dur : 076 ms QT Int : 388 ms P-R-T Axes : 056 022 016 degrees QTc Int : 455 ms Normal sinus rhythm Normal ECG When compared with ECG of 16-DEC-2023 09:22, QT has shortened Referred By: Eneida Allison Electronically Signed By:AMANDA EDOUARD
[2023-12-22] MEDS: traZODone HCL 100 MG TABLET PO (00:24)
[2023-12-22] MEDS: hydrOXYzine HCL 25 MG TABLET PO ×3 (00:24→15:56)
[2023-12-22] MEDS: Omeprazole 40 MG CAPSULE.DR PO (07:22)
[2023-12-22] MEDS: methADONE HCl 20 MG/2 ML ORAL.CONC 215 MG PO (07:24)
[2023-12-22 07:45] VITALS: BP 121/67; PULSE 88; RESP 16; TEMP 36.4; O2SAT 96
[2023-12-22] MEDS: Gabapentin 400 MG CAPSULE 1200 MG PO ×2 (08:29→14:11)
[2023-12-22] MEDS: buPROPion HCl XL 300 MG TAB.ER.24H PO (08:30)
[2023-12-22] MEDS: QUEtiapine Fumarate 100 MG TABLET PO ×2 (08:30→15:56)
[2023-12-22] MEDS: clonazePAM 1 MG TABLET PO (08:30)
[2023-12-22] MEDS: cloNIDine HCL 0.1 MG TABLET PO (08:30)
--- NOTE | 2023-12-22 11:39 | HO.PSYCHPN ---
Subjective Subjective Date of Service: 12/22/23 Reason For Visit: Major Depressive disorder, Polysubstance Use, Opia Subjective Notes: Conditional Voluntary Healthcare Proxy: No Guardianship: No Medical Problems Affecting Mental Status: No Interim History: I am serious about both my sobriety and mental health. Pt reports he is OK , re-establishing his stability and feeling positive about moving in the right direction. Methadone dosing is stable, pt reports he feels well at this level. Mental health is going in a good direction . Full med review, and meds are stable. Sleep continues to be an issue. For sleep will stop Ambien, increase Melatonin to 6 mg HS prn and Klonopin to 1 mg bid. Pt hopes for program acceptance. He has attended the [facility] program in the past, found it helpful and hopes to return to build on what he has learned. Pt is ready to make this next step. Medication Compliance: Yes Side effects from medications: No Attending Groups: Intermittent Review of Systems Acute medical concerns: No Medical Review of Systems: unchanged Review of Systems Review of Systems Yes all other systems are reviewed and are negative Mental Status Exam Mental Status Exam Patient Appearance: Appropriate Patient Orientation: Person, Place, Time and Situation Level of Consciousness: Alert Patient Behavior: Appropriate, Talkative, Cooperative and Good Eye Contact Mood Description: Appropriate, Anxious and Apprehensive Affect Description: Appropriate, Anxious and Apprehensive Patient Cognition Impaired: No Ability to Follow Directions: Good Speech Pattern: Spontaneous Speech Memory Description: Intact Hallucinations: None Delusions: Not Present Thought Process: Intact and Goal Oriented Thought Content: positive for Intact and positive for Goal Oriented Depressive Symptoms: Increased Anxiety and Thoughts of /Suicide Judgement: Good Diagnostics Vital Signs (24Hr): Vital Signs - 24 hr 12/21/23 13:49 12/21/23 18:00 12/22/23 07:45 Temperature 98.7 F 97.6 F Pulse Rate 72 81 88 Respiratory Rate 16 16 Blood Pressure 117/62 121/65 121/67 Pulse Oximetry 98 97 96 Oxygen Delivery Method Room Air Room Air Room Air BMI result Body Mass Index 36.1 Medications Medications Current Medications Acetaminophen (Acetaminophen 325 Mg Tablet) 650 mg PO Q6H PRN PRN Reason: Headache/Pain Mild Scale (1-3) Al Hydroxide/Mg Hydroxide (Magnesium Hydrox/Alum Hydrox 30 Ml Oral.Susp) 30 ml PO Q6H PRN PRN Reason: Heartburn/Nausea Bupropion HCl (Bupropion Hcl Xl 300 Mg Tab.Er.24h) 300 mg PO DAILY SHANAE Last Admin: 12/22/23 08:30 Dose: 300 mg Clonazepam (Clonazepam 1 Mg Tablet) 1 mg PO DAILY [facility]NAE Last Admin: 12/22/23 08:30 Dose: 1 mg Clonidine HCl (Clonidine Hcl 0.1 Mg Tablet) 0.1 mg PO Q6H PRN; Protocol PRN Reason: anxiety/restlessness Last Admin: 12/22/23 08:30 Dose: 0.1 mg Clonidine HCl (Clonidine Hcl 0.2 Mg Tablet) 0.2 mg PO BEDTIME SHANAE; Protocol Last Admin: 12/21/23 20:31 Dose: 0.2 mg Gabapentin (Gabapentin 400 Mg Capsule) 1,200 mg PO TID [facility] Last Admin: 12/22/23 08:29 Dose: 1,200 mg Hydroxyzine HCl (Hydroxyzine Hcl 25 Mg Tablet) 25 mg PO Q6H PRN PRN Reason: Anxiety Last Admin: 12/22/23 08:30 Dose: 25 mg Magnesium Hydroxide (Milk Of Magnesia 30 Ml Oral.Susp) 30 ml PO DAILY PRN PRN Reason: Constipation Melatonin (Melatonin 3 Mg Tablet) 3 mg PO BEDTIME PRN PRN Reason: Insomnia Last Admin: 12/21/23 20:30 Dose: 3 mg Methadone HCl (Methadone Hcl 20 Mg/2 Ml Oral.Conc) 215 mg PO DAILY@0630 [facility] Last Admin: 12/22/23 07:24 Dose: 215 mg Omeprazole (Omeprazole 40 Mg Capsule.Dr) 40 mg PO DAILY@0630 [facility] Last Admin: 12/22/23 07:22 Dose: 40 mg Ondansetron HCl (Ondansetron Odt 4 Mg Tab.Rapdis) 4 mg TRANSLINGU Q8H PRN PRN Reason: Nausea and Vomiting Last Admin: 12/15/23 20:57 Dose: 4 mg Quetiapine Fumarate (Quetiapine Fumarate 100 Mg Tablet) 100 mg PO TID PRN PRN Reason: Anxiety Last Admin: 12/22/23 08:30 Dose: 100 mg Quetiapine Fumarate (Quetiapine Fumarate 200 Mg Tablet) 200 mg PO BEDTIME [facility]NAE Last Admin: 12/21/23 20:30 Dose: 200 mg Trazodone HCl (Trazodone Hcl 100 Mg Tablet) 100 mg PO BEDTIME MRX1 PRN PRN Reason: Insomnia Last Admin: 12/22/23 00:24 Dose: 100 mg Zolpidem Tartrate (Zolpidem Tartrate 5 Mg Tablet) 5 mg PO BEDTIME PRN PRN Reason: Insomnia Last Admin: 12/21/23 20:30 Dose: 5 mg Allergies Allergies Allergy/AdvReac Type Severity Reaction Status Date / Time No Known Allergies Allergy Unverified 05/24/20 19:16 [No Known Allergies*] Assessment & Plan Assessment & Plan (1) PTSD (post-traumatic stress disorder): Status: Acute Code(s): F43.10 - Post-traumatic stress disorder, unspecified (2) Recurrent major depression: Status: Acute Code(s): F33.9 - Major depressive disorder, recurrent, unspecified (3) Opioid use disorder, moderate, in early remission, on maintenance therapy, dependence: Status: Acute Code(s): F11.21 - Opioid dependence, in remission (4) Polysubstance use disorder: Status: Acute Code(s): F19.90 - Other psychoactive substance use, unspecified, uncomplicated (5) Alcohol use disorder: Status: Acute Code(s): F10.90 - Alcohol use, unspecified, uncomplicated Plan 43 yo male, history of PTSD, depression, opiate, polysubstance and alcohol use disorder presents with SI due to interruptions in addiction and mental health treatment. Hospital course: 12/16 mood better, depression less and no SI pt irritable, multiple requests for things, timing of meds, and irritated when request not granted. Inappropriate sexualized verbal interaction with female 18 yo female peer rude comment made to male peer -proposal manager writer discussed meds and explained dosing but was able to make comprimise with patient -discussed his interaction w/ female peer which he denied (was overheard by 2 staff) but says will refrain from any such interactions -pt wants ambien for sleep; says trazodone, seroquel, mirtazapine no longer works. Embossing Press Operator Molded Goods decided not start at this time. However, discussed Wellbutrin which he says helps and proposal manager writer agreed to restart 12/17 pt in better mood today and in good behavioral and impulse control. No inappropriate behaviors accepted why all meds not given at 6:30am but grateful that methadone can remain so Pt reports poor sleep; he did not ask for ambien, but proposal manager writer offered since proposal manager writer agrees that sleep will help overall and lack of sleep can be a hinderance to progress. -discussed hx of insomnia which is considerable -pt asked for Wellbutrin to be increased to which proposal manager writer agreed. 12/18: continue tx plan 12/22/23- Discontinue Ambien-pt's programs will not accept him with this agent. Increase Melatonin to 6 mg HS prn Increase Klonopin to 1 mg bid Repeat EKG from 12/15. Pt is ready to transition to his next phase of treatment. Plan: cv q5's for now INCREASE to wEllbutrin XL 300mg daily (pt used to be on 450mg) ambien 5mg qhs prn Klonopin 1 mg daily Collateral contacts Application for ongoing residential treatment for addiction. Re-check EKG as QTc is elevated. Informed Consent: understands Reason for continued inpatient stay Substantial Risk for: rapid decompensation Time Spent With Patient Time: Total time managing care of this patient today ____ minutes.
--- NOTE | 2023-12-22 16:23 | P.DS_ITS ---
DS: Providers Provider Date of Service: 12/22/23 Date of admission: 12/15/23 19:21 Date of discharge: 12/22/23 Primary care physician: Unknown Physician Admitting clinician: Eneida Allison Attending physician on admission: Wicho Matos Consults: 12/15/23 19:34 Consult to Hospitalist Routine Comment: Consulting Provider: Hospitalist Reason For Exam: H&P, new admit Attending physician on discharge: Wicho Matos Discharging clinician: Eneida Allison DS: Diagnosis Discharge Diagnosis (1) PTSD (post-traumatic stress disorder): Status: Acute (2) Recurrent major depression: Status: Acute (3) Opioid use disorder, moderate, in early remission, on maintenance therapy, dependence: Status: Acute (4) Polysubstance use disorder: Status: Acute (5) Alcohol use disorder: Status: Acute DS: Medications Discharge Medications Home Medications: Previous Rx's ?Medication ?Instructions ?Recorded bupropion HCl 300 mg 24 hr tablet, 300 mg PO DAILY #30 tabs 12/22/23 extended release clonazepam 1 mg tablet 1 mg PO BID #60 tabs 12/22/23 clonidine HCl 0.1 mg tablet 0.1 mg PO Q6H PRN 12/22/23 Anxiety/Restlessness #30 tabs clonidine HCl 0.2 mg tablet 0.2 mg PO BEDTIME #30 tabs 12/22/23 gabapentin 400 mg capsule 1,200 mg (3 x 400 mg) PO TID #270 12/22/23 caps hydroxyzine HCl 25 mg tablet 25 mg PO Q6H PRN Anxiety #30 tabs 12/22/23 melatonin 3 mg tablet 6 mg (2 x 3 mg) PO BEDTIME PRN 12/22/23 Insomnia #6 tabs methadone 10 mg/mL oral 215 mg (21.5 mL) PO DAILY@0630 #0 12/22/23 concentrate (Methadose) mL omeprazole 40 mg capsule,delayed 40 mg PO DAILY@0630 #30 caps 12/22/23 release ondansetron 4 mg disintegrating 4 mg translingual Q8H PRN Nausea 12/22/23 tablet And Vomiting #20 tabs quetiapine 100 mg PO TID PRN Anxiety #90 tabs 12/22/23 quetiapine 200 mg tablet 200 mg PO BEDTIME #30 tabs 12/22/23 trazodone 100 mg tablet 100 mg PO BEDTIME MRX1 PRN 12/22/23 Insomnia #60 tabs Mental Status Exam Mental Status Exam Patient Appearance: Appropriate Patient Orientation: Person, Place, Time and Situation Level of Consciousness: Alert Patient Behavior: Appropriate, Talkative, Cooperative and Good Eye Contact Mood Description: Appropriate, Anxious and Apprehensive Affect Description: Appropriate, Anxious and Apprehensive Patient Cognition Impaired: No Ability to Follow Directions: Good Speech Pattern: Spontaneous Speech Memory Description: Intact Hallucinations: None Delusions: Not Present Thought Process: Intact and Goal Oriented Thought Content: positive for Intact and positive for Goal Oriented Depressive Symptoms: Increased Anxiety and Thoughts of /Suicide Judgement: Good Data Data Completed and Pending Completed studies during hospitalization [Text1]: 12/17/23 08:16 Estimat Average Glucose 126 Hemoglobin A1c % 6.0 Magnesium 2.2 Triglycerides 120 Cholesterol 159 LDL Cholesterol, Calc 95 HDL Cholesterol 40 L Vitamin B12 550 Folate 11.0 TSH 1.51 Free T4 1.12 DS: Summary Hospital Course Hospital Course: Admission to adult psychiatry for exacerbation of PTSD, Recurrent Major Depression, Alcohol Use Disorder, Opiate Use Disorder with Methadone Maintenance and Polysubstance Use Disorder. Medications were evaluated and adjusted. Aftercare options were assessed. Pt will attend [facility] upon discharge to continue treatment. Status at Discharge Functional status at discharge: independent ambulation Overall status at discharge: patient is progressing back to baseline Time Spent with Patient Time attestation: Total time managing care of this patient today ____ minutes. Time spent: Less than 30 minutes Discharge Plan Discharge Anticipated Discharge Date/Time: 12/22/23 16:00 Patient Disposition: Xfer Inpatient Rehab Fac Discharge Diagnosis: PTSD Recurrent Major Depression Opiate Use Disorder, Methadone Maintenance Alcohol, Polysubstance Use Disorders Referrals: Physician,Unknown J [Primary Care Provider] - 1 Week Discharge Medications: New clonidine HCl 0.1 mg Tablet 0.1 mg PO Q6H PRN (Reason: Anxiety/Restlessness) Qty: 30 0RF Protocol: Hold for SBP< HOLD for SBP < : 90 gabapentin 400 mg Capsule 1,200 mg PO TID Qty: 270 0RF quetiapine 200 mg Tablet 200 mg PO BEDTIME Qty: 30 0RF clonazepam 1 mg Tablet 1 mg PO BID Qty: 60 0RF melatonin 3 mg Tablet 6 mg PO BEDTIME PRN (Reason: Insomnia) Qty: 6 0RF omeprazole 40 mg Capsule,Delayed Release(Dr/Ec) 40 mg PO DAILY@0630 Qty: 30 0RF clonidine HCl 0.2 mg Tablet 0.2 mg PO BEDTIME Qty: 30 0RF Protocol: Hold for SBP< HOLD for SBP < : 90 trazodone 100 mg Tablet 100 mg PO BEDTIME MRX1 PRN (Reason: Insomnia) Qty: 60 0RF hydroxyzine HCl 25 mg Tablet 25 mg PO Q6H PRN (Reason: Anxiety) Qty: 30 0RF methadone [Methadose] 10 mg/mL Concentrate 215 mg PO DAILY@0630 Qty: 0 0RF Rx Instructions: Partial Fill upon patient request. ondansetron 4 mg Tablet,Disintegrating 4 mg translingual Q8H PRN (Reason: Nausea And Vomiting) Qty: 20 0RF bupropion HCl 300 mg Tablet Extended Release 24 Hr 300 mg PO DAILY Qty: 30 0RF Continued quetiapine tablet 100 mg PO TID PRN (Reason: Anxiety) Qty: 90 0RF Discontinued melatonin tablet 3 mg PO BEDTIME PRN (Reason: Insomnia) clonidine HCl tablet 0.1 mg PO TID PRN (Reason: Anxiety) quetiapine tablet 200 mg PO BEDTIME gabapentin capsule 1,200 mg PO TID omeprazole capsule 20 mg PO DAILY Patient Comments: Med is on hold per pt pharmacy; picked up on 12/03/23 Discharge Orders: Discharge Order (Routine); Ordered 12/22/23 Ordered By: Eneida Allison Diet: Advance to usual diet Activity on Discharge: As tolerated Stand Alone Forms: Patient Portal Discharge page, Community Support Print Language: Libyan Care Plan Goals: Mood and Behavioral Stabilization Ongoing work on Sobriety Health Concerns: Mood and Behavioral Stabilization Ongoing work on Sobriety Plan of Treatment: Transfer to [facility], [place] for rehab Attend scheduled appointments Take medications as directed Assessment: Pt interviewed prior to discharge and found to be fully oriented and without SI,HI. Pt has insight and demonstrates good judgment in terms of wanting to pursue treatment. Pt is not in imminent risk of harm to self or others and has a safety plan that includes presenting to the closest ER or calling 911 if feeling unsafe. He also feels comfortable with rehab team to discuss immediate concerns and ask for help. Pt has been observed closely by nursing and unit staff throughout admission. Pt has not engaged in any behaviors that suggest dangerousness to self or others and has demonstrated appropriate behaviors and impulse control. Discharge Date/Time: 12/22/23 16:00
== END 2023-12-22 16:00 | DRG 751 ==
PROVIDERS: Admitting Provider Psychiatry & Neurology Psychiatry; Visit Provider Clinical Nurse Specialist Psychiatric/Mental Health, Adult
DX: F33.9 Major depressive disorder, recurrent, unspecified (principal); R45.851 Suicidal ideations; F11.20 Opioid dependence, uncomplicated; F19.90 Other psychoactive substance use, unspecified, uncomplicated; F43.10 Post-traumatic stress disorder, unspecified; F17.210 Nicotine dependence, cigarettes, uncomplicated; J45.20 Mild intermittent asthma, uncomplicated; Z71.6 Tobacco abuse counseling; Z79.899 Other long term (current) drug therapy
CPT/HCPCS: 36415; 80061; 82607; 82746; 83036; 83735; 84439; 84443; 93005

== ENCOUNTER 2023-12-15 19:21 | Outpatient (BNV) | payer OTHER, SELFPAY | END 2023-12-16 08:00 | PROVIDERS: Admitting Provider Psychiatry & Neurology Psychiatry; Visit Provider Internal Medicine Cardiovascular Disease | DX: I45.81 Long QT syndrome (principal) | CPT/HCPCS: 93010 ==

== ENCOUNTER 2023-12-15 19:21 | Outpatient (BNV) | payer OTHER, SELFPAY | END 2023-12-22 12:00 | PROVIDERS: Admitting Provider Psychiatry & Neurology Psychiatry; Visit Provider Internal Medicine | DX: I45.81 Long QT syndrome (principal) | CPT/HCPCS: 93010 ==

== ENCOUNTER → 2023-12-15 19:21 | Outpatient (BNV) | payer OTHER, SELFPAY | PROVIDERS: Admitting Provider Psychiatry & Neurology Psychiatry; Visit Provider Physician Assistant | DX: Z02.2 Encounter for examination for admission to residential institution (principal) | CPT/HCPCS: 99429 ==

== ENCOUNTER → 2023-12-15 19:21 | Outpatient (BNV) | payer OTHER, SELFPAY | PROVIDERS: Admitting Provider Psychiatry & Neurology Psychiatry; Visit Provider Psychiatry & Neurology Psychiatry | DX: F33.2 Major depressive disorder, recurrent severe without psychotic features (principal); F11.21 Opioid dependence, in remission; F43.11 Post-traumatic stress disorder, acute; F19.90 Other psychoactive substance use, unspecified, uncomplicated; F10.90 Alcohol use, unspecified, uncomplicated | CPT/HCPCS: 90792; 99231; 99232; 99238; 99499 ==